=== PATIENT | male | born 1960 | race Caucasian/White ===

== ENCOUNTER 2016-08-03 21:30 | Emergency (ER) | payer MEDICARE, MEDICAID ==
[~2016-08-03] VITALS: Ht 185.4 cm; Wt 131.1 kg
[2016-08-03 21:55] VITALS: BP 138/78
[2016-08-03 22:27] LABS: BILIRUBIN,URINE NEGATIVE (NEGATIVE); BLOOD, URINE NEGATIVE Ery/uL (NEGATIVE); COLOR,URINE YELLOW (YELLOW); KETONES,URINE NEGATIVE (NEGATIVE); LEUKOCYTE ESTERASE ,URINE NEGATIVE (NEGATIVE); NITRITE, URINE NEGATIVE (NEGATIVE); PROTEIN,URINE NEGATIVE (NEGATIVE); UGLUCOSE NEGATIVE (NEGATIVE); UROBILINOGEN,URINE 0.2 EU/dL (0.2)
[2016-08-03 22:31] LABS: APPEARANCE,URINE CLEAR (CLEAR)
== END 2016-08-03 22:58 | disposition home or self-care (01) ==
LOC: ER 21:33
DX: N40.0 Benign prostatic hyperplasia without lower urinary tract symptoms (principal); I10 Essential (primary) hypertension; J44.9 Chronic obstructive pulmonary disease, unspecified; F17.210 Nicotine dependence, cigarettes, uncomplicated
CPT/HCPCS: 81000-TC; A4606; Z7610

== ENCOUNTER 2016-11-01 00:47 | Emergency (ER) | payer MEDICARE, MEDICAID ==
[~2016-11-01] VITALS: Ht 185.4 cm; Wt 136.1 kg
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
[2016-11-01] MEDS ORDERED: ALBUTEROL FS 2.5 MG/3 ML VIAL.NEB ONE (02:32)
[2016-11-01] MEDS ORDERED: IPRATROPIUM NEB FS 0.5 MG/2.5 ML AMPUL.NEB ONE (02:32)
[2016-11-01] MEDS ORDERED: DOXYCYCLINE HYCLATE (100 MG) 100 MG TABLET ONE (02:42)
[2016-11-01] MEDS ORDERED: DEXAMETHASONE SOD PHOSPHATE 10 MG/ML VIAL ONE (02:42)
--- NOTE | 2016-11-01 02:42 | NUR ---
PT IS ON A BREATHING TX.
[2016-11-01] MEDS ORDERED: ALBUTEROL FS 2.5 MG/3 ML VIAL.NEB CONTNEB ONE (03:00)
[2016-11-01] MEDS ORDERED: DOXYCYCLINE HYCLATE (100 MG) 100 MG TABLET PO ONE (03:00)
[2016-11-01] MEDS ORDERED: IPRATROPIUM NEB FS 0.5 MG/2.5 ML AMPUL.NEB NEB ONE (03:00)
[2016-11-01] MEDS ORDERED: DEXAMETHASONE SOD PHOSPHATE 10 MG/ML VIAL IV ONE (03:00)
--- NOTE | 2016-11-01 03:19 | NUR ---
PT FINISHED BREATHING TX.
[2016-11-01 03:55] VITALS: BP 167/96
--- NOTE | 2016-11-01 03:56 | NUR ---
Patient discharged to home in stable condition. Written and verbal after care instructions given. Patient verbalizes understanding of instruction AND RX. PT AMBULATED IN WITH A STEADY GAIT. VSS. RESP EVEN AND UNLABORED. O2 SAT 99%.
== END 2016-11-01 03:56 | disposition home or self-care (01) ==
LOC: ER 00:47
DX: J44.1 Chronic obstructive pulmonary disease with (acute) exacerbation (principal); I10 Essential (primary) hypertension; F17.200 Nicotine dependence, unspecified, uncomplicated
CPT/HCPCS: 94644; 99285; A4606; J1100; Z7610

== ENCOUNTER 2019-10-27 23:59 | Emergency (ER) | payer MEDICARE, OTHER ==
[~2019-10-27] VITALS: Ht 185.4 cm; Wt 111.1 kg
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
[2019-10-28] MEDS ORDERED: KETOROLAC TROMETHAMINE INJ 30 MG/ML VIAL ONE (01:25)
[2019-10-28] MEDS ORDERED: LORAZEPAM INJ 2 MG/ML VIAL ONE (01:26)
[2019-10-28] MEDS ORDERED: KETOROLAC TROMETHAMINE INJ 30 MG/ML VIAL IV ONE (01:30)
[2019-10-28] MEDS ORDERED: LIDOCAINE 5% (PATCH) 1 EA PATCH TP SCH (01:30)
[2019-10-28] MEDS ORDERED: IV NS 0.9% 500 ML BAG IV ONE (01:30)
[2019-10-28] MEDS ORDERED: LORAZEPAM INJ 2 MG/ML VIAL IV ONE (01:30)
[2019-10-28] MEDS ORDERED: LIDOCAINE 5% (PATCH) 1 EA PATCH TP ONE (01:32)
[2019-10-28] MEDS ORDERED: HYDROMORPHONE 1 MG/1 ML DISP.SYRIN ONE ×2 (02:13→02:59)
[2019-10-28] MEDS ORDERED: HYDROMORPHONE 1 MG/1 ML DISP.SYRIN IV ONE (02:30)
[2019-10-28] MEDS ORDERED: HYDROMORPHONE 1 MG/1 ML DISP.SYRIN IM ONE (03:00)
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
--- NOTE | 2019-10-28 03:15 | NUR ---
Patient discharged to home in stable condition. Written and verbal after care instructions given. Patient verbalizes understanding of instruction.
[2019-10-28 04:14] VITALS: BP 168/105
== END 2019-10-28 03:20 | disposition home or self-care (01) ==
LOC: ER 10-28 00:03
DX: M54.5 Low back pain (principal); G89.29 Other chronic pain; F17.210 Nicotine dependence, cigarettes, uncomplicated; I10 Essential (primary) hypertension; J44.9 Chronic obstructive pulmonary disease, unspecified; Z98.890 Other specified postprocedural states
CPT/HCPCS: 96372; 96374; 96375; 99284; 99406; J1170 ×2; J1885; J2060; J7030; J7040

== ENCOUNTER 2022-04-22 00:44 | Emergency (ER) | payer MEDICARE, OTHER ==
--- NOTE | 2022-04-22 01:00 | NUR ---
CALLED TO TRIAGE NO ANSWER
--- NOTE | 2022-04-22 01:45 | NUR ---
CALLED TO [facility], NO ANSWER
== END 2022-04-22 02:33 | disposition left against medical advice (07) ==
LOC: ER 00:46
DX: Z53.21 Procedure and treatment not carried out due to patient leaving prior to being seen by health care provider (principal)